=== PATIENT | male | born 1990 | race Caucasian/White ===

== ENCOUNTER 2021-05-31 22:11 | Emergency (ER) | payer SELFPAY ==
[~2021-05-31] VITALS: Ht 188 cm; Wt 104.5 kg
[2021-05-31] MEDS ORDERED: famotidine 20mg tablet PO STA (22:21)
[2021-05-31] MEDS ORDERED: dexamethasone 4mg tablet PO ONE (22:25)
[2021-05-31] MEDS ORDERED: CLIN300C71 PO (23:44)
[2021-05-31] MEDS ORDERED: DIPH25CA83 PO (23:45)
[2021-05-31] MEDS ORDERED: clindamycin 150mg capsule PO ONE (23:45)
[2021-05-31] MEDS ORDERED: PRED20TA PO (23:45)
--- NOTE | 2021-06-01 00:06 | NUR ---
PATIENT ASLEEP IN ROOM, CHEST RISE AND FALL. FEELS BETTER.
[2021-06-01 00:11] VITALS: BP 163/78
== END 2021-06-01 00:25 | disposition home or self-care (01) ==
LOC: ER 22:12
DX: R60.0 Localized edema (principal); T36.0X5A Adverse effect of penicillins, initial encounter; K04.7 Periapical abscess without sinus; Y92.89 Other specified places as the place of occurrence of the external cause; Z88.1 Allergy status to other antibiotic agents
CPT/HCPCS: 99284